=== PATIENT | female | born 1960 | race Caucasian/White ===

== ENCOUNTER 2021-10-14 08:12 | Outpatient (CLI) | payer OTHER, SELFPAY ==
--- NOTE | 2021-10-14 08:15 | TELERAD_ITS ---
[address] [address] Phone:?[phone] Fax:?[phone] Referring Physician Information: Jefe Lopez [address] [facility] [address] Phone:?[phone] Fax:?[phone] Patient:Mateus Grossman D.O.B:?1960 Sex:?Female Phone:?[phone] [facility] MRN:?[id number] Exam Date:?10/14/2021 ? EXAM: MRI of the RIGHT KNEE, without contrast CLINICAL HISTORY: Right knee pain. Evaluate medial patellofemoral ligament. Right knee injury/dislocation. COMPARISONS: None available. TECHNICAL: MR sequences of the right knee: sagittals: PD, PDFS coronals: PD, STIR axials: PD, T2 FS CONTRAST: None SEDATION: None FINDINGS: Bones: No fracture or suspicious bone marrow signal abnormality. 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 Retinacula: The medial and lateral retinacula are intact. The medial patellofemoral ligament is intact. Fat pads: The infrapatellar, quadriceps, and prefemoral fat pads are unremarkable. Knee joint: Effusion: Large right knee joint effusion and substantial synovitis. Popliteal cyst: Moderate to large perforated popliteal cyst. Intra-articular bodies: Approximately 10 x 7 x 5 mm intra-articular body within the medial patellofemoral recess best seen on axial series 4 image 17 and coronal series 7 image 13. Medial compartment: Medial meniscus: Approximately 3.0 cm in length free edge and inferiorly surfacing horizontal flap tear of the body through posterior horn of the medial meniscus best seen on coronal series 8 images 17 through 20 and sagittal series 6 images 24 through 20. Approximately 3 mm of medial meniscal extrusion best seen on coronal series 7 image 18. Cartilage: Diffuse near full-thickness and full-thickness chondral loss over most of the weightbearing portion of the medial femoral condyle with associated degenerative subchondral cystic change anteriorly grade III chondromalacia over the peripheral portion of the medial tibial plateau. Lateral compartment: Lateral meniscus: Intact. Cartilage: Approximately 1.0 x 1.0 cm area of grade III chondromalacia over the central portion of the lateral tibial plateau best seen on sagittal series 6 image 11. Approximately 1.0 x 1.0 cm area of grade II chondromalacia over the weight-bearing portion of the lateral femoral condyle best seen on sagittal series 6 image 10. Ligaments: Anterior cruciate ligament: Intact. Posterior cruciate ligament: Intact. Medial collateral ligament: Intact. Posterior oblique ligament: Intact. Fibular collateral ligament: Intact. Posterolateral corner: The distal biceps femoris tendon, iliotibial band, popliteus tendon, popliteus muscle, popliteofibular ligament, and arcuate ligament are intact. Posteromedial corner: The semimembranosus and pes anserine tendons are intact. Extensor mechanism: Patellar tendon: Intact. Quadriceps tendon: Intact, without tendinopathy. IMPRESSION: 1. Approximately 3.0 cm in length free edge and inferiorly surfacing horizontal flap tear of the body through posterior horn of the medial meniscus. Approximately 3 mm of medial meniscal extrusion. 2. Diffuse full-thickness chondromalacia over all portions of patella and over the central and medial portions of the trochlea with associated degenerative subchondral cystic changes. 3. Diffuse near full-thickness and full-thickness chondral loss over most of the weightbearing portion of the medial femoral condyle with associated degenerative subchondral cystic change anteriorly and grade III chondromalacia over the peripheral portion of the medial tibial plateau. 4. Approximately 1.0 x 1.0 cm area of grade III chondromalacia over the central portion of the lateral tibial plateau and an approximately 1.0 x 1.0 cm area of grade II chondromalacia over the weight-bearing portion of the lateral femoral condyle. 5. Approximately 10 x 7 x 5 mm intra-articular body within the medial patellofemoral recess. 6. Large right knee joint effusion and substantial synovitis. Moderate to large perforated popliteal cyst. 7. No medial patellofemoral ligament or retinacular tear or other evidence of transient lateral patellar dislocation injury. No lateral meniscal pathology or ligamentous injury of the right knee. RCB Electronically signed on 10/14/2021 1:50:00 PM by Kaushik Newsome M.D.
== END 2021-10-14 08:13 | disposition home or self-care (01) ==
LOC: MRI 08:13
PROVIDERS: PCP Family Medicine; Visit Provider Physician Assistant
DX: M25.561 Pain in right knee (principal); S83.104A Unspecified dislocation of right knee, initial encounter; M23.221 Derangement of posterior horn of medial meniscus due to old tear or injury, right knee; M94.261 Chondromalacia, right knee; M25.461 Effusion, right knee; M71.21 Synovial cyst of popliteal space [Baker], right knee
CPT/HCPCS: 73721

== ENCOUNTER 2021-11-04 07:22 | Day surgery (SDC) | payer OTHER, SELFPAY ==
[2021-11-04] VITALS (13 sets, daily range): BP systolic 82–133; BP diastolic 55–90; PULSE 50–69; RESP 14–16; TEMP 36.2–36.7; O2SAT 91–98; BMI 36.2
[2021-11-04] MEDS: SODIUM CHLORIDE 0.9 % (FLUSH) 10 ML SYRINGE IVF (07:55)
[2021-11-04] MEDS: LACTATED RINGERS 1000 ML 1,000 ML 100 ML IV (07:55)
--- NOTE | 2021-11-04 09:27 | SUR.OPER ---
PATIENT QUESTIONS ANSWERED SATISFACTORILY PREOPERATIVELY.? PATIENT BROUGHT TO OR #3 PER CART.? Patient positioned supine on OR #3 bed.?The perioperative?team supported arms bilaterally on arm boards.? Final approval of positioning by surgeon.? CONTINUOUS IRRIGATION OF THE RIGHT KNEE WITH NACL DURING THE PROCEDURE.
[2021-11-04] MEDS: ROPIVACAINE 0.5% 30 ML 150 MG INJECTION (09:44)
--- NOTE | 2021-11-04 09:52 | PM.ORPRC ---
Procedure Note Date of procedure: 11/04/21 Procedure: PREOPERATIVE DIAGNOSIS: 1. Right knee medial meniscus tear 2. Right knee loose body POSTOPERATIVE DIAGNOSIS: 1. Right knee medial meniscus tear 2. Right medial femoral condyle osteophyte PROCEDURE: 1. Right knee arthroscopic partial medial menisectomy 2. Right knee arthroscopic medial femoral condylar osteophyte excision SURGEON: Nj Shepherd M.D. BINDER CUTTER: BITA Cintron. Of note, an assistant laboratory director was critical for this case to aid in patient positioning, knee manipulation, instrument exchange, and closure. ANESTHESIA: Spinal EBL: 2ml TOURNIQUET: 30 min at 300 torr COMPLICATIONS: None evident INDICATIONS: The patient is a pleasant 61-year-old female who has experienced right knee pain particularly with any twisting or turning. Physical exam was concerning for medial meniscus tear, this was confirmed on MRI. Additionally, attempted nonoperative management has been tried, and failed. Thus, surgery was recommended. FINDINGS: Complex tearing posterior horn to midbody medial meniscus. 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 Grade 3-4 chondromalacia patella as well median ridge and medial facet intact lateral meniscus and intact articular cartilage lateral compartment. ACL and PCL intact robust. No loose body identified. Some enlarged synovial extensions which may look like loose body seen in the medial gutter. Additionally, medial femoral osteophytes seen off the medial femoral condyle in the medial gutter measuring 10 by 7 mm in diameter. DESCRIPTION OF PROCEDURE: After a thorough discussion of risks, benefits, and alternatives, the patient was brought to the operating room and placed upon the operating table. Induction of anesthesia was undertaken as previously noted. 2g iv Ancef was administered within 1 hr of incision preoperatively. Appropriate time-out was performed identifying proper patient, site, and procedure. The right lower extremity was prepped and draped in the appropriate sterile fashion using ChloraPrep. The limb was exsanguinated and tourniquet inflated. Anterolateral and anteromedial portals were established with an 11 blade, and a diagnostic arthroscopy was performed. This identified the findings as noted above. Following the diagnostic arthroscopy, a partial medial menisectomy was performed with the combination of basket forceps and a motorized shaver. Following this, the meniscus was re-probed and found to be stable. Approximately 25-33 % of the overall meniscus required resection. The torpedo shaver was also utilized to help with a limited synovectomy involving the medial enlarged synovial for dunk elated structures. It was also utilized for osteophyte excision in addition to a pituitary rongeur. At this stage, the shaver was reinserted into the suprapatellar pouch and all remaining meniscal debris was evacuated. Instruments were removed, excess fluid was drained, and closure performed with 4-0 Monocryl with Steri-Strips. Dressings were applied, the tourniquet deflated, and the patient was awoken from anesthesia and transferred to the PACU in stable condition. PLAN: 1. Weightbear as tolerated operative extremity. Crutch / walker ambulation assistance PRN. 2. Ice, acetominophen and/or ibuprofen, and Percocet for pain as needed. 3. Knee range of motion and quad sets/straight leg raise regularly 4. Follow up with PA visit in 1-2 weeks for a wound check and possibly to initiate physical therapy.
--- NOTE | 2021-11-04 10:00 | W.ANESCHARGE ---
Anesthesia Charges Start Date/Time Anesthesia Start Date: 11/04/21 Anesthesia Start Time: 08:52 Stop Date/Time Anesthesia Stop Date: 11/04/21 Anesthesia Stop Time: 10:00 Summary Emergency: No
--- NOTE | 2021-11-04 10:04 | W.ANESCHARGE ---
Anesthesia Charges Start Date/Time Anesthesia Start Date: 11/04/21 Anesthesia Start Time: 08:52 Stop Date/Time Anesthesia Stop Date: 11/04/21 Anesthesia Stop Time: 10:00 Summary Emergency: No
== END 2021-11-04 11:45 | disposition home or self-care (01) ==
PROVIDERS: PCP Family Medicine; Visit Provider Orthopaedic Surgery Sports Medicine
PROC: (CPT 29870; principal; 2021-11-04 09:00)
DX: M23.221 Derangement of posterior horn of medial meniscus due to old tear or injury, right knee (principal); M23.41 Loose body in knee, right knee; M25.761 Osteophyte, right knee
CPT/HCPCS: 29881; 29875; 01400; J1100; J2250; J2400; J2405; J2704; J2795; J3010; J7120

== ENCOUNTER 2021-12-17 08:15 | Outpatient (RCR) | payer OTHER, SELFPAY | END 2022-03-30 10:43 | disposition home or self-care (01) | PROVIDERS: PCP Family Medicine; Visit Provider Physician Assistant Surgical | DX: Z98.890 Other specified postprocedural states (principal); Z51.89 Encounter for other specified aftercare | CPT/HCPCS: 97110; 97140; 97162 ==

== ENCOUNTER 2023-03-24 07:40 | Outpatient (CLI) | payer OTHER, SELFPAY | END 2023-03-24 07:41 | disposition home or self-care (01) | LOC: NFLDREF 03-25 06:38 | PROVIDERS: PCP Family Medicine; Referring Provider Family Medicine; Visit Provider Family Medicine | DX: E78.5 Hyperlipidemia, unspecified (principal); R73.03 Prediabetes; Z13.9 Encounter for screening, unspecified | CPT/HCPCS: 80053; 80061 ==

== ENCOUNTER 2023-06-22 13:46 | Outpatient (CLI) | payer OTHER, SELFPAY ==
--- NOTE | 2023-06-22 14:00 | MM_ITS ---
Patient: ZACHARY HCAMBERS Facility:?[facility] Patient ID:?[id number] Site Patient ID:?[id number]. Site :?1960 Study:?XRay-Breast Bilateral 3D W/CAD-06/22/2023 2:11:25 PM Ordering Physician:Leyla Sheehan Final Report: BILATERAL SCREENING MAMMOGRAM WITH COMPUTER-AIDED DETECTION AND TOMOSYNTHESIS TECHNIQUE: CC and MLO views were obtained. These mammographic images have been obtained using full-field digital technique. These mammographic images were interpreted with the benefit of computer-aided detection. Breast Tomosynthesis was used in this interpretation. COMPARISON FILM: 06/22/21, 05/20/20, 01/16/16. FINDINGS: There are scattered areas of fibroglandular density IMPRESSION: There is no radiographic evidence for malignancy. ASSESSMENT: BI-RADS Category 2: Benign RECOMMENDATION: Routine screening mammogram in 1 year. A lay language report of this examination will be provided to the patient. Ravin Pérez M.D. Diagnostic Radiologist [email or web address] PATRICK/leeanna Transcribed: 2:18 p.mWolf durán/Dictated by: Ravin Pérez MD @ 06/29/2023 1:10:00 PM Signed by:?Ravin Pérez MD @06/29/2023 3:07:27 PM (Electronic Signature)
== END 2023-06-22 13:47 | disposition home or self-care (01) ==
LOC: MAMMO 13:46
PROVIDERS: PCP Family Medicine; Visit Provider Family Medicine
DX: Z12.31 Encounter for screening mammogram for malignant neoplasm of breast (principal)
CPT/HCPCS: 77063; 77067

== ENCOUNTER 2023-07-11 10:53 | Outpatient (CLI) | payer OTHER, SELFPAY ==
--- OUTSIDE RECORDS SUMMARY | 2023-07-11 10:55 | XMS_ITS | Clinical Summary ---
Author Name Unknown Organization [employer] Address [place], [place] [address] Care Team Providers Care Motor Vehicle Parts Interpreter Name Role Phone Pcp, No Primary Care Provider Unavailabl e Allergies Active Allergy Reactions Criticality Noted Date Comments Sulfa (Sulfonamide Antibiotics) 09/25 Medications Medication Sig Dispensed Refills Start Date End Date Status acetic acid (VOSOL) 2 % otic solutionIndications:C hronic swimmer's ear , unspecified laterality 4 Drops 3 times daily. Do not fill until patient calls 1 Bottle 3 12/13/2014 Active fluticasone (50 mcg per actuation) nasal solution (FLONASE)Indications: Other allergic rhinitis Inhale 1 Procious into both nostrils 2 times daily. 1 Bottle 2 06/23/2015 Active Active Problems Problem Noted Date Diagnosed Date Routine general medical exam ination at a health care facility 03/27/2012 Overview: Colonoscopy 07/2012 normal repeat in 10 years Menopause 03/27/2012 Overview: lmp 12/2011 Immunizations Name Administration Dates Next Due HepA-HepB (Twinrix) 09/16/2004,09/25/2002,2001 Influenza, IIV3 (Age >=3 years) 01/18/2012 Influenza, IIV4 01/15/2015 Td (Age >=7 Years) 12/18/2001 Tdap 03/27/2012 Family History Medical History Relation Name Comments Thyroid Disease Father Cancer-breast Maternal Aunt 1 age 60+ Cancer-breast Maternal Aunt 2 age 60+ Cancer-colon No Family History Relation Name Status Comments Father Alive Maternal Aunt 1 Maternal Aunt 2 Mother Alive Social History Tobacco Use Types Packs/Day Years Used Date Smoking Tobacco: Never Smokeless Tobacco: Never Tobacco Cessation:Counseling Given: Yes Alcohol Use Standard Drinks/Week Comments Yes 0 (1 standard drink = 0.6 oz pur e alcohol) few drinks a week. Sex and Gender Information Value Date Recorded Sex Assigned at Not on file Gender Identity Not on file Sexual Orientation Not on file Obstetrics History Last Filed Vital Signs Vital Sign Reading Time Taken Comments Blood Pressure 128/84 09/04/2015 5:07 PM CDT Pulse 62 09/04/2015 5:07 PM CDT Temperature 37.1 ??C (98.7 ??F) 09/04/2015 5:07 PM CD T Respiratory Rate - - Oxygen Saturation 98% 09/04/2015 5:07 PM CDT Inhaled Oxygen Concentration - - Weight 89.3 kg (196 lb 12.8 oz) 09/04/2015 5:07 PM CDT Height 162 cm (5' 3.78) 12/13/2014 1:59 PM CDT Body Mass Index 34.01 12/13/2014 1:59 PM CDT Plan of Treatment Health Maintenance Due Date Last Done Comments HIV for age 15-65 1977 BMI (ht and wt on same day) for age 18+ 1980 Hepatitis C screening for age 18-79 1980 Zoster (shingles) series for age 50+ (1 of 2) 2012 Mammogram for age 45-75 11/06/2015 11/06/19 15, 11/02/2013, 03/27/2012, Additional history exists Depression screening for age 12+ 06/22/2016 06/23/2015 Lipids for age 45-75 03/13/2020 03/13/2015, 01/29/2014, 04/07/2012 Tetanus booster 03/27/2022 03/27/2012, 12/18/2001 Colonoscopy through age 75 08/23/2022 08/23/2012, COVID-19 vaccine series (2022- season) 2022 Pap test for age 21-65 04/11/2023 , 04/11/2020, 12/05/2013, Additional history exists Influenza for age 50-64 11/27/2023 01/16/20 15, 01/18/2012 (Completed outside of [facility]), 01/18/2012 Tdap Completed 03/27/2012 Pneumococcal series for age 6-64 Aged Out No longer eligible based on patient's age to complete this topic Procedures Procedure Name Priority Date/Time Associated Diagnosis Comments GAS WELDER THIN PREP PAP SCREEN IMAGED Routine 04/11/2020 8:04 AM DIESEL MAINTENANCE TECHNICIAN LIPID PANEL W REFLEX MEASURED LDL Routine 03/13/2015 7:27 AM DIESEL MAINTENANCE TECHNICIAN Screening, lipid XR MAMMO BILAT SCREEN FFDM (IA) Routine 11/05/2014 3:05 PM CDT Other screening mammogram from Last 3 Months or Most Recently Relevant to Health Maintenance Results * GAS WELDER THIN PREP PAP SCREEN IMAGED (04/11/2020 8:04 AM DIESEL MAINTENANCE TECHNICIAN) Case Report Gynecologic Cytology Report ? Case: [id number] ? Authorizing Provider: ??Leyla Dutta MD ??Collected: ? 04/11/2020 0804 ? Ordering Location: ? [facility] ?Received: ?04/11/2020 1857 ? First Screen: ?Sandi Orozco ? Specimen: ?GAS WELDER ThinPrep Vial Screening, Cervical/Vaginal ? 04/23/2020 9:[address] [facility] INTERPRETATION/ RESULT NEGATIVE FOR INTRAEPITHELIAL LESION OR MALIGNANCY (NIL) (none) 04/23/2020 9:[address] [facility] IMEN ADEQUACY Satisfactory for evaluation Endocervical cells cannot be evaluated due to severe atrophy 04/23/2020 9:[address] [facility] HPV REQUEST HPV and PAP 04/23/2020 9:11 AM [facility] Last Pap Date 11/29/2013 04/23/2020 9:[address] [facility] Menstrual Status Postmenopausal 04/23/2020 9:[address] [facility] Additional Information 04/23/2020 9:11 AM [facility] Comment: Interpreted at [facility] - [address], [place] [address] Automated Review Successful 04/23/2020 9:11 AM [facility] Comment:Specimen processed s uccessfully by automated flight control manager device, ThinPrep Imaging System, [employer] ANCILLARY TESTING GAS WELDER HPV Ordered, Please see separate report 04/23/2020 9:[address] [facility] Note The pap test is a screening technique, not a diagnostic procedure. It is used primarily to screen for squamous cancers and precursor lesions. Published studies have shown that it is subject to both false negative and false positive results. The pap test should not be used as the sole means to diagnose or exclude pre-malignant and malignant lesions. 04/23/2020 9:[address] [facility] Other (Cervical/Vagina l) 04/11/2020 8:04 AM DIESEL MAINTENANCE TECHNICIAN 04/11/2020 6:57 PM DIESEL MAINTENANCE TECHNICIAN Leyla Dutta MD PATHOLOGY/CYTOLO GY [facility] [address] [place] [address], [place] * (ABNORMAL) LIPID PANEL W REFLEX MEASURED LDL (03/13/2015 7:27 AM DIESEL MAINTENANCE TECHNICIAN) CHOLESTEROL,TOTAL 254(H) 100 - 199 mg/dL 03/13/2015 8:04 AM DIESEL MAINTENANCE TECHNICIAN [facility] TRIGLYCERIDES 83 <150 mg/dL 03/13/2015 8:04 AM DIESEL MAINTENANCE TECHNICIAN [facility] HDL CHOLESTEROL 72 >40 mg/dL 03/13/2015 8:04 AM DIESEL MAINTENANCE TECHNICIAN [facility] NON-HDL CHOLESTEROL 182(H) <145 mg/dl 03/13/2015 8:04 AM DIESEL MAINTENANCE TECHNICIAN [facility] CHOL/HDL RATIO 3.53 <4.50 03/13/2015 8:04 AM DIESEL MAINTENANCE TECHNICIAN [facility] LDL CHOLESTEROL 165(H) <=130 mg/dL 03/13/2015 8:04 AM DIESEL MAINTENANCE TECHNICIAN [facility] PATIENT STATUS FASTING 03/13/2015 8:04 AM [facility] Blood specimen (specimen) BLOOD SPECIMEN / Unknown Venipuncture / Unknown 03/13/2015 7:27 AM DIESEL MAINTENANCE TECHNICIAN 03/13/2015 7:27 AM DIESEL MAINTENANCE TECHNICIAN Lelia Morales CHEMISTRY [facility] [address] [place] [address], [place] [phone] * XR MAMMO BILAT SCREEN FFDM (11/05/2014 3:05 PM CDT) Anatomical Region Laterality Modality BREASTS, Breast Left, Breast Right Bilateral Mammography Impressions 11/06/2014 12:14 PM CDT ??There is no radiographic evidence for malignancy. ??Recommend annual mammograms. A lay language report of this examination will be provided to the patient. MAMMOGRAM ASSESSMENT: ??ACR 2 Benign Narrative 11/06/2014 12:14 PM CDT XR MAMMO BILAT SCREEN FFDM [G0202.0] CLINICAL HISTORY: ??This is an asymptomatic 54 y.o. patient. INDICATION FOR EXAM: Mammogram Screening. TECHNIQUE: CC & MLO views were obtained. ??This digital study was evaluated with the assistance of Computer-Aided Detection. COMPARISON FILMS: Yes 11/02/13 [facility] 03/27/12 [facility] FINDINGS: ??Mammographically, the breast tissue is heterogeneously dense, which could obscure detection of small masses. ??No suspicious masses or microcalcifications. ??Benign appearing calcifications within both breasts and Intramammary lymph node within left breast. Lelia Morales MAMMO from Last 3 Months or Most Recently Relevant to Health Maintenance Care Teams Motor Vehicle Parts Interpreter Relationship Specialty Start Date End Date Pcp, No . PCP - General 03/11/15
--- NOTE | 2023-07-11 12:22 | W.ANESCHARGE ---
Anesthesia Charges Start Date/Time Anesthesia Start Date: 07/11/23 Anesthesia Start Time: 11:50 Stop Date/Time Anesthesia Stop Date: 07/11/23 Anesthesia Stop Time: 12:20
--- NOTE | 2023-07-11 13:00 | W.ANESCHARGE ---
Anesthesia Charges Start Date/Time Anesthesia Start Date: 07/11/23 Anesthesia Start Time: 11:50 Stop Date/Time Anesthesia Stop Date: 07/11/23 Anesthesia Stop Time: 12:20
== END 2023-07-11 10:54 | disposition home or self-care (01) ==
LOC: OP CLINIC 10:53
PROVIDERS: PCP Family Medicine; Visit Provider Surgery
DX: Z12.11 Encounter for screening for malignant neoplasm of colon (principal); K62.1 Rectal polyp
CPT/HCPCS: 00811; 45385; 88305; J2704

== ENCOUNTER 2024-04-19 07:55 | Outpatient (CLI) | payer BC, SELFPAY | END 2024-04-19 07:56 | disposition home or self-care (01) | LOC: NFLDREF 04-27 07:38 | PROVIDERS: PCP Family Medicine; Referring Provider Family Medicine; Visit Provider Family Medicine | DX: R73.03 Prediabetes (principal); E78.5 Hyperlipidemia, unspecified | CPT/HCPCS: 80053; 80061 ==

== ENCOUNTER 2024-07-13 08:15 | Outpatient (RCR) | payer BC, SELFPAY | END 2024-10-22 12:38 | disposition home or self-care (01) | PROVIDERS: PCP Family Medicine; Visit Provider Family Medicine | DX: M17.12 Unilateral primary osteoarthritis, left knee (principal); M25.562 Pain in left knee; Z51.89 Encounter for other specified aftercare | CPT/HCPCS: 97110; 97140; 97161 ==

== ENCOUNTER 2024-11-05 14:50 | Outpatient (CLI) | payer BC, SELFPAY ==
--- NOTE | 2024-11-05 15:00 | CRLHL7_ITS ---
For Patients: As a result of the Century Cures Act, medical imaging exams and procedure reports are released immediately into your electronic medical record. You may view this report before your referring provider. If you have questions, please contact your health care provider. INDICATION: BILATERAL SCREENING MAMMOGRAM, ASYMPTOMATIC 64 Y/O FEMALE COMPARISON: 06/22/2023, 06/22/2021, 05/20/2020 TECHNIQUE: Digital mammogram in CC and MLO projections including computer-aided detection (CAD) and tomosynthesis. BREAST COMPOSITION: There are scattered areas of fibroglandular density. FINDINGS: No suspicious findings. ASSESSMENT: BI-RADS 1 Negative RECOMMENDATION: Annual screening mammogram. A lay language report of this examination will be provided to the patient. Dictated by: Ravin Pérez MD @ 11/06/2024 09:01:07 (Electronically Signed)
== END 2024-11-05 14:51 | disposition home or self-care (01) ==
LOC: MAMMO 14:50
PROVIDERS: PCP Family Medicine; Visit Provider Family Medicine
DX: Z12.31 Encounter for screening mammogram for malignant neoplasm of breast (principal)
CPT/HCPCS: 77063; 77067